=== PATIENT | female | born 1935 | race Caucasian/White ===

== ENCOUNTER 2018-12-13 16:43 | Emergency (ER) | payer MEDICARE ==
--- OUTSIDE RECORDS SUMMARY | 2018-12-13 16:49 | XMS REPORT | Continuity of Care Document ---
:1935 Author Organization [facility] Care Team Providers Name Role Phone ROULA ARTEAGA Admitting Physician ROULA ARTEAGA Attending Physician Hospital Admission Diagnosis Code Admission Diagnosis Date [id number] Acute bronchitis Social History Element Code Description Smoking Start Date End Date Description Status Code System Smoking Status 221252819 Unknown if ever SNOMED-CT smoked Problems Code Code System Problem Name Start Date End Date Status 91911034 SNOMED-CT Hypercholesterolemia 11/2014 Active 421897282 SNOMED-CT Asthma 11/2014 Active 17131864 SNOMED-CT Hypertensive disorder 11/2014 Active Medications RxNorm Medication Dose Route Instructions Indications Start End Status Date Date 1191 Aspirin 81 oral orally every Active milligram day 405198 atorvastatin 20 20 oral orally every Active MG Oral Tablet milligram day 1897 Calcium 600 oral orally every Active Carbonate milligram day (administer after food or a meal) 2418 Cholecalciferol 2000 unit oral orally every Active day 32964 fluticasone 2 Inhalation inhaled 2 Active inhalatio times per day n 191954 rizatriptan 5 MG 10 oral orally once Active Oral Tablet milligram (may repeat once if at least 2 hours after first dose if first dose was effective but headache returns) 92726 salmeterol 2 Inhalation inhaled 2 Active inhalatio times per day n 643159 topiramate 50 MG 50 oral orally every Active Oral Tablet milligram day 760839 valsartan 40 MG 40 oral orally every Active Oral Tablet milligram day 00534 Verapamil 180 oral orally 2 Active milligram times per day 984415 Calcium 1 tablet oral orally every No Carbonate 1250 day Longer MG / Active Cholecalciferol 400 UNT Oral Tablet Allergies Code Code Allergy Type Reaction Severity Start End Status System Substance Date Date 99310118 RXNorm Beta-Anum Drug shortness of Unknown 03/10/20 Active s allergy breath 15 (Beta-Adrene rgic Blocking Agts) Results Laboratory Results Order: POC Influenza A/B, RNA LOINC Test Result Flag Range Unit Date 57061-9 NEGATIVE N NEGATIVE 11/27/2018 Influenza virus 15:43 A RNA:ACnc:Pt:XXX :Ord:Probe.amp. tar Note: Performed on the Alere i analyzer by rapid molecular methodology. 62621-9 Influenza virus B NEGATIVE N NEGATIVE 11/27/2018 RNA:ACnc:Pt:XXX:Ord:Probe.amp.tar 15:43 Note: Performed on the Alere i analyzer by rapid molecular methodology. Vital Signs No data in the system Plan of Care No data in the system Procedures No data in the system Encounters Date Code Diagnosis Status (ICD10) - J209 ACUTE BRONCHITIS UNSPECIFIED Active Immunizations No data in the system Functional Status No data in the system Hospital Discharge Instructions No data in the system
--- OUTSIDE RECORDS SUMMARY | 2018-12-13 16:49 | XMS REPORT | Continuity of Care Document ---
:1935 External Reference #:[id number] Author Name Sarah Cabral PA-C Address [address] [address] Care Team Providers Name Role Phone Paulo Goode M.D. Care Team Information [employer] Unavailable Payers Type Date Identification Numbers Payment Provider Subscriber Effective: Policy Number: [id number] [employer]-[place] [employer]y Simmons 2018 [employer]VS PayID: [id number] [address] [place] [address] Advance Directives Description No Information Available Problems Description No Information Family History Description No Information Available Social History Type Date Description Comments Sex Unknown Occupation Retired Tobacco Use Start: Unknown End: Former Cigarette Smoker quit age 31. started Unknown 1/2 Pack Daily smoking age 19 Tobacco Use Start: Unknown Never Smoked Cigars Tobacco Use Start: Unknown Never Smoked A Pipe Smokeless Tobacco Never Used Smokeless Tobacco ETOH Use Denies alcohol use Tobacco Use Start: Unknown End: Patient is a former Unknown smoker Smoking Status Reviewed: 12/11/18 Patient is a former smoker Allergies, Adverse Reactions, Alerts Date Description Reaction Status Severity Comments 12/11/2018 Beta Anum Active Medications Medication Date Status Form Strength Qnty SIG Indications Ordering Provider Losartan Active Tablets 25mg Unknown Potassium 000 Atorvastatin Active Tablets 20mg Take 1 Unknown Calcium 000 Tablet By Mouth Once Daily Advair Diskus Active Aerosol 250-50mcg/ Unknown 000 Dose Topiramate Active Tablets 50mg Unknown 000 Verapamil HCL Active Caps ER 180mg Unknown ER 000 24HR Rizatriptan Active Tablets 10mg Unknown Benzoate 000 Vitamin D Active Tablets 3000Unit every Unknown 000 day Aspirin Active Chewtabs 81mg 1 by Unknown 000 mouth every day Super B-Complex Active Tablets Unknown 000 Ocuvite Eye + Active Tablets Unknown Multi 000 Immunizations Description No Information Available Vital Signs Date Vital Result Comment 12/11/2018 3:18pm Weight 160.00 lb Weight 72.576 kg Height 64 inches 5'4" Height in cm's 162.6 cm BMI (Body Mass Index) 27.5 kg/m2 Results Description No Information Available Procedures Date Code Description Status 12/11/2018 98011 Contol Nasal Hemorrhage, Anterior, Simple Completed Encounters Description No Information Available Plan of Treatment No Information Available
--- OUTSIDE RECORDS SUMMARY | 2018-12-13 16:49 | XMS REPORT ---
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 Vitamin D Deficiency 05/20/2009 Ubaldo Law MD Active Diverticulosis of Small Intestine 12/13/2007 Ubaldo Law MD Active Note: DUADENAL DIVERTICULITIS Migraine Headache 04/12/2001 Ubaldo Law MD Active Note: classic with aura Chronic Asthmatic Bronchitis 01/15/2001 Ubaldo Law MD Active Note: mild to moderate Chronic Obstructive Pulmonary Disease 01/15/2001 Ubaldo Law MD Active Note: mild to moderate Clotting 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 Ubaldo Law MD Instructions No Instructions Recorded Medications Current Medications (continue as prescribed) Amoxicillin-Pot Clavulanate 11/27/2018 Diagnosis: Acute bronchitis, unspecified 500-125MG Oral Tablet one by mouth twice a day with food x 10 days Shingrix 50MCG/0.5ML Intramuscular 09/19/2018 Diagnosis: Encounter for immunization Suspension Reconstituted 0.5ml IM first dose - 2nd dose booster 2-6 mths following first dose Losartan Potassium 25MG Oral Tablet 08/30/2018 Diagnosis: 1/2 tab by mouth once daily Ocuvite-Lutein Oral Capsule 08/14/2018 Diagnosis: Verapamil HCl ER 180MG Oral 07/03/2018 Diagnosis: Essential (primary) hypertension Capsule Extended Release 24 Hour one by mouth twice a day Atorvastatin Calcium 20MG Oral Tablet 05/03/2018 Diagnosis: Mixed hyperlipidemia one by mouth daily Topiramate 50 MG Tablet 03/31/2017 Diagnosis: B Complex Tablet 01/20/2016 Diagnosis: Vitamin D3 3000 UNIT Tablet 08/07/2015 Diagnosis: Vitamin D Deficiency Nos Advair Diskus 250-50MCG/DOSE IN AEPB 04/24/2014 Diagnosis: ONE PUFF DAILY Aspirin 81 MG TABS 04/24/2014 Diagnosis: Maxalt 10MG OR TABS 10/09/2013 Diagnosis: PRN FOR MIGRAINES Past Medications on file Losartan Potassium 25MG Oral 06/15/2018 - 08/30/2018 Diagnosis: Tablet 1/2 tab by mouth once daily Valsartan 40 MG Tablet 10/31/2017 - 06/15/2018 Diagnosis: Essential (primary ) hypertension one by mouth daily Verapamil HCl ER 180 MG 06/20/2017 - 07/03/2018 Diagnosis: Essential ( primary) Capsule Extended Release hypertension 24 Hour one by mouth twice a day Escitalopram Oxalate 10 MG 03/31/2017 - 08/14/2018 Diagnosis: Tablet LevoFLOXacin 500 MG Tablet 10/26/2016 - 11/25/2016 Diagnosis: Acute bronchitis, unspecified one by mouth daily Valsartan 40 MG Tablet 07/11/2016 - 07/25/2017 Diagnosis: Essential (primary ) hypertension one by mouth daily Sulfamethoxazole-Trimethoprim 800-160 05/27/2016 - Diagnosis: Acute cystitis MG Tablet 07/28/2016 without hematuria one by mouth twice a day Ciprofloxacin HCl 250 MG 02/15/2016 - 04/01/2016 Diagnosis: Frequency of micturition Tablet one by mouth twice a day Topiramate 25 MG Tablet 01/20/2016 - 03/31/2017 Diagnosis: Levaquin 500 MG Tablet 11/26/2015 - 01/20/2016 Diagnosis: Acute bronchitis, unspecified one by mouth daily with 6-8 oz. of water Valsartan 40 MG Tablet 08/04/2015 - 07/11/2016 Diagnosis: Essential (primary ) hypertension one by mouth daily Atorvastatin Calcium 20 MG 07/10/2015 - 07/11/2016 Diagnosis: Mixed Hyperlipidemia Tablet one by mouth daily Verapamil HCl ER 180 MG Capsule, 06/08/2015 - 05/13/2016 Diagnosis: Hypertension Nos extended-release 24 hour one by mouth twice a day Diovan 40MG OR TABS 05/04/2015 - 08/04/2015 Diagnosis: Hypertension Nos Diovan 40MG OR TABS 03/13/2015 - 05/04/2015 Diagnosis: Atorvastatin Calcium 20MG OR 01/12/2015 - 07/10/2015 Diagnosis: Mixed Hyperlipidemia TABS Zithromax Z-King 250MG OR TABS 11/24/2014 - 02/04/2015 Diagnosis: 500MG po x 1 today, then 250MG QD x 4 days. Diovan 80MG OR TABS 09/23/2014 - 03/13/2015 Diagnosis: Benign Hypertension Levaquin 500MG OR TABS 08/25/2014 - 01/20/2016 Diagnosis: Atorvastatin Calcium 20MG OR 07/18/2014 - 01/12/2015 Diagnosis: Mixed Hyperlipidemia TABS Verapamil HCl ER 180 MG CP24 06/06/2014 - 06/08/2015 Diagnosis: Calcium 600 MG TABS 04/24/2014 - 03/31/2017 Diagnosis: Multivitamins CAPS 04/24/2014 - 08/14/2018 Diagnosis: Atorvastatin Calcium 20MG OR 04/07/2014 - 07/18/2014 Diagnosis: Mixed Hyperlipidemia TABS Atorvastatin Calcium 20MG OR 04/07/2014 - 04/07/2014 Diagnosis: Mixed Hyperlipidemia TABS one tablet QOD Atorvastatin Calcium 40MG OR 12/18/2013 - 04/07/2014 Diagnosis: TABS one tablet QOD Valsartan-Hydrochlorothiazide 80-12.5MG 12/02/2013 - Diagnosis: OR TABS 09/23/2014 Verapamil HCl ER 180 MG CP24 10/09/2013 - 06/06/2014 Diagnosis: Advair HFA 115-21 MCG/ACT AERO 10/09/2013 - 11/24/2014 Diagnosis: 2 PUFFS EVERY 4-6 HOURS PRN Topiramate 25 MG CPSP 10/09/2013 - 01/20/2016 Diagnosis: 2 EVERYDAY AT HS Atorvastatin Calcium 80MG OR 08/30/2013 - 12/18/2013 Diagnosis: TABS Verapamil HCl ER 180 MG TBCR 06/05/2013 Diagnosis: Verapamil HCl ER 180 MG TBCR 04/16/2013 - 06/05/2013 Diagnosis: Valsartan-Hydrochlorothiazide 80-12.5MG 02/22/2013 - Diagnosis: OR TABS 12/02/2013 Medications Administered No Administered Medications Recorded Vital Signs Vital Name 11/27/2018 09/19/2018 08/14/2018 08/03/2018 02/23/2018 03:44P 01:25P 10:24A 10:15A 02:41P Blood Pressure 130/82 118/72 Sitting L BP Cuff Size Large Regular Pulse 112 86 78 Rate-Sitting (bpm) Pulse Rhythm Regular Regular Regular Respiration 24 24 24 Rate (breaths/min) Temp-Tympanic 101.7 98.9 97.6 98.3 (F) Height (in) 63.25 63.25 63.25 63.25 63.25 Weight (lb) 168 168 169 171 Body Mass Index 29.5 29.5 29.7 30.1 (kg/m2) Body Surface 1.80 1.80 1.81 1.81 Area (m2) Oxygen 91 Saturation (%) Pain Level 0 0 Vital Name 12/12/2017 02:10P Blood Pressure 128/78 Sitting L BP Cuff Size Large Pulse 80 Rate-Sitting (bpm) Pulse Rhythm Regular Respiration 20 Rate (breaths/min) Temp-Tympanic 99.4 (F) Height (in) 63.25 Weight (lb) 166 Body Mass Index 29.2 (kg/m2) Body Surface 1.79 Area (m2) Pain Level 0 Lab Results CBC w/ Differential [facility] Ordered by Ubaldo Law MD on 08/14/2018 Collected: 08/14/2018 Reported: Abs. Immature Gran. 0.04 x1000/ul (0.00-0.02) H (High) Basophils 1.3 % (0.0-2.0) None Abs. Basophils 0.12 x1000/ul (0.00-0.22) None Eosinophils 2.9 % (0.0-7.0) None Abs. Eosinophils 0.27 x1000/ul (0.00-0.76) None Hematocrit 45.5 % (37.0-47.0) None Hemoglobin 14.5 g/dl (12.0-16.0) None Immature Granulocytes 0.4 % (0.0-0.5) None Lymphocytes 21.7 % (19.0-48.0) None Abs. Lymphocyte 2.05 x1000/ul (1.20-3.70) None MCH 28.5 pg (27.0-31.0) None MCHC 31.9 g/dl (32.2-37.0) L (Low) MCV 89.6 fL (81.0-99.0) None Monocytes 10.0 % (3.4-9.0) H (High) Abs. Monocytes 0.94 x1000/ul (0.14-0.97) None MPV 9.9 fL (9.4-12.4) None Neutrophils 63.7 % (40.0-74.0) None Abs. Neutrophils 6.02 x1000/ul (1.92-8.31) None Platelet Count 290 x1000/ul (130-400) None RBC 5.08 x1Mil/ul (4.20-5.40) None RDW 13.9 % (11.5-14.5) None Nucleated RBCs 0.00 % (0.00-0.20) None Abs. Nucleated RBCs 0.00 x1000/ul (0.00-0.02) None WBC 9.44 x1000/ul (4.80-10.00) None Reviewed by Ubaldo Law MD on 08/15/2018; All test results are final unless otherwise noted. Chemistry Profile [facility] Ordered by Ubaldo Law MD on 08/14/2018 Collected: 08/14/2018 Reported: Anion Gap 11.5 None Albumin 3.9 g/dl (3.4-5.0) None Alkaline Phosphatase 82 mIU/ml (50-136) None ALT 24 IU/L (13-56) None Note: Sulfasalazine and sulfapyridine have the potential to fasely depressAlanine Aminotransferase results. Baseline values before medication administration are recommended. AST 20 IU/L (15-37) None Note: Sulfasalazine and sulfapyridine have the potential to fasely depressAspartate Aminotransferase results. Baseline values before medication administration are recommended. Blood Urea Nitrogen 18 mg/dl (7-18) None Calcium 9.4 mg/dl (8.5-10.1) None Chloride 108.0 mEq/L (98.0-107.0) H (High) Carbon Dioxide 27.7 mMol/L (21.0-32.0) None Creatinine 0.77 mg/dl (0.51-0.95) None Note: N-Acetylcysteine (NAC) and Metamizole have the potential to falselydepress Creatinine results. Baseline values before medication adminstration are recommended. Glomerular Filtration Rate 72.00 mL/min/1.73m2 None Note: GFR Reference Ranges:Normal Function or Mild Renal Disease,if clinically at risk:>or=60Moderately decreased:30 - 59Severely decreased:15 - 29Renal Failure:<15 Please note that the MDRD equation requires an additional adjustment forAfrican-Americans (multiply the GFR result by 1.210).Glomarular Filtration Rate (GFR) is estimated based on the MDRDequation, which assumes a steady state for creatinine (Jessica Int Med 139/2 137-149, 2003), as recommended by the NationalKidney Disease Education Program in conjunctionwith the National Institutes of Health and [facility]. The [place] method used in calculating this result istraceable to IDMS standards. Glucose 84 mg/dl (70-110) None Note: Sulfasalazine has the potential to falsely depress Glucose results.Sulfapyridine has the potential to faslely elevate Glucose results.Baseline values before medication administration are recommended. Potassium 4.2 mEq/L (3.5-5.1) None Sodium 143 mEq/L (136-145) None Total Bilirubin 1.00 mg/dl (0.20-1.00) None Total Protein 7.1 g/dl (6.4-8.2) None Reviewed by Ubaldo Law MD on 08/15/2018; All test results are final unless otherwise noted. Vitamin D, 25-OH [facility] Ordered by Ubaldo Law MD on 08/14/2018 Collected: 08/14/2018 Reported: Vitamin D, 25-OH 47.7 ng/ml (30.0-100.0) None Reviewed by Ubaldo Law MD on 08/15/2018; All test results are final unless otherwise noted. Cholesterol Panel [facility] Ordered by Ubaldo Law MD on 08/14/2018 Collected: 08/14/2018 Reported: Cholesterol/ HDL Ratio 2.5 (0.0-5.0) None Cholesterol 174 mg/dl (0-200) None HDL Cholesterol 70 mg/dl (30-85) None Note: N-Acetylcysteine (NAC) and Metamizole have the potential to falselydepress HDL Cholesterol results. Baseline values before medication adminstration are recommended. LDL Cholesterol 84.4 mg/dl (62.0-185.0) None Triglycerides 98 mg/dl (30-200) None Note: N-Acetylcysteine (NAC) and Metamizole have the potential to falselydepress Triglyceride results. Baseline values before medication adminstration are recommended. Reviewed by Ubaldo Law MD on 08/15/2018; All test results are final unless otherwise noted. Reported Physicians [facility] Ordered by Ubaldo Law MD on 08/14/2018 Collected: 08/14/2018 Reported: Reported Physicians See Note None Note: Reported Physicians:Ordering: UBALDO LAWAttending: UBALDO LAW Reviewed by Ubaldo Law MD on 08/15/2018; All test results are final unless otherwise noted. *Urine Dip [facility] Ordered by Ubaldo Law MD on 02/23/2018 Collected: 02/23/2018 Reported: 04/2018 Bilirubin NEG (Normal - negative) NI (Not Interpreted) Blood NEG (Normal - negative) NI (Not Interpreted) Glucose NEG (Normal - negative) NI (Not Interpreted) Ketones NEG (Normal - negative) NI (Not Interpreted) Leukocytes NEG (Normal - negative) NI (Not Interpreted) Nitrite NEG (Normal - negative) NI (Not Interpreted) PH 6.5 (Normal - 5.0 to NI (Not Interpreted) 7.0) Protein NEG (Normal - negative) NI (Not Interpreted) Specific Thayer 1.025 (Normal - 1.015 to NI (Not Interpreted) 1.025) Urobilinogen 1.0 (Normal - 0.2-1.0 NI (Not Interpreted) E.U./dL) Note: DLP Reviewed by Ubaldo Law MD on 02/23/2018; All test results are final unless otherwise noted. 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 No physical disability 01/20/2016 Normal activities of daily living 01/20/2016 Not using drugs 01/20/2016 Caffeine use 08/04/2015 Daily coffee consumption 2 cups/day 08/04/2015 Good exercise habits 08/04/2015 Not a current smoker 08/04/2015 Not using alcohol 08/04/2015 Currently 05/27/2015 Former smoker 05/27/2015 Social history unchanged 08/25/2014 Smoking status : Former smoker 06/11/2014 Procedures and Surgical/Medical History Procedures CPT-4 Diagnosis Performing Service Service Date Provider Location Syst Bp Lt 130 Mm 3074F Essential (primary) Ubaldo Law MD *[facility] 08/14/2018 Hg hypertension, Of Web Office Presbycusis, bilateral, Migraine with aura, not intractable, w/o status migrainosus Diast Bp < 80 Mm 3078F Essential (primary) Ubaldo Law MD *[facility] 08/14/2018 Hg hypertension, Of Web Office Presbycusis, bilateral, Migraine with aura, not intractable, w/o status migrainosus Syst Bp Ge 130 - 3075F Essential (primary) Ubaldo Law MD *[facility] 02/23/2018 139mm Hg hypertension Of Web Office Diast Bp < 80 Mm 3078F Essential (primary) Ubaldo Law MD *[facility] 02/23/2018 Hg hypertension Of Web Office Surgical History Last Updated History of cholecystectomy 10/09/2013 History of hysterectomy S/P TAHBSO DUE TO TGQOQNCP01/94-HOMOCYSTINE 2012 ELEVATION History of orthopedic surgery S/P LEFT TOTAL KNEE ARTHOPLASTY-01/07/022012 S/P RIGHT TOTAL KNEE ARTHOSCOPY-02/12/02 Medical History Last Updated History of asthma 10/26/2016 Currently wearing eyeglasses - for reading 09/27/2016 Health care proxy on file 09/27/2016 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 09/27/2016 Hearing loss 09/27/2016 Living will on file 09/27/2016 No problem remembering words 09/27/2016 No slurred speech 09/27/2016 No speech difficulties 09/27/2016 Patient has Advance Directives 09/27/2016 Smoking status : Former smoker 09/27/2016 History of essential hypertension 01/20/2016 No history of coronary artery disease 01/20/2016 No history of type 2 diabetes mellitus 01/20/2016 History of chronic obstructive pulmonary disease 11/26/2015 History of hypertension 11/26/2015 Compliant with medications 08/04/2015 History of hyperlipidemia 08/04/2015 No history of atherosclerosis of extremities 08/04/2015 No history of congestive heart failure 08/04/2015 No history of diabetes mellitus 08/04/2015 No history of prior myocardial infarction 08/04/2015 No history of renal failure 08/04/2015 No history of thyroid disorder 08/04/2015 No recent change in medical history 08/25/2014 Hysterectomy 10/09/2013 Family History Description Last Updated Family history unchanged 08/14/2018 No rales/crackles were heard 02/15/2016 Father at age 63 11/26/2015 Maternal history of coronary artery disease 11/26/2015 Mother at age 82 11/26/2015 Paternal history of acute myocardial infarction 11/26/2015 Review of Systems No Review of Systems Recorded Functional and Cognitive Status Description Oriented to time, place, and person Physical Exam No Physical Exam Recorded Immunizations Vaccine Dose # Date Site Reaction(s) Status Source Influenza, No 1 Right Arm Active Patient Prsv age 3+ 3 (Reported) [facility] Influenza, No 2 Active Patient Prsv age 3+ 4 (Reported) [facility] Influenza, No [address] [facility] Prsv age 3+ 5 ([facility]ister [facility] Quad ed) Note: VIS 06/26/15 Influenza, No Prsv age 4 08/30/2016 Active (Reported) Patient 3+ [facility] Note: given through Hospice Influenza, No 5 09/27/[address] [facility] Prsv age 3+ (Administered) [facility] Influenza, No 6 09/19/[address] [facility] Prsv age 3+ (Administered) [facility] PCV 13 (Prevnar) 1 03/17/2015 Left Arm Active [facility] (Administered) [facility] Note: 01/16/2013 VIS Pneumococcal Poly 1 06/11/2014 Left Arm Active [facility] (Administered) [facility] Note: Pneumococcal Polysaccharide (PPSV23) VIS date 08/25/09 Allergies Substance Type Reaction Effective Status Beta Adrenergic Blockers Allergy Asthma/Shortness of Breath 07/11/2013 Active Encounters Encounter Provider Location Date Diagnosis *Problem Ubaldo Law *[facility] 11/27/2018 Chronic Asthmatic Management Web Office Bronchitis, Chronic Obstructive Pulmonary Disease *INJ Flu Ubaldo Law *[facility] 09/19/2018 Web Office [Patient Ubaldo Law *[facility] 08/30/2018 Encounter] Web Office *Problem Ubaldo Law *[facility] 08/14/2018 Benign Hypertension, Management Web Office Chronic Obstructive Pulmonary Disease, Chronic Asthmatic Bronchitis, Clotting Factor Deficiency Factor V, Diverticulosis of Small Intestine, Gerd, Hyperlipoproteinemia Mixed, Migraine Headache, Presbycusis, Vitamin D Deficiency *Problem Ubaldo Law *[facility] 08/03/2018 Management Web Office [Patient Ubaldo Law *[facility] 07/03/2018 Encounter] Web Office RX Refill Ubaldo Law *[facility] 06/15/2018 Web Office *Problem Ubaldo Law *[facility] 02/23/2018 Benign Hypertension, Management Web Office Chronic Asthmatic Bronchitis, Chronic Obstructive Pulmonary Disease, Clotting Factor Deficiency Factor V, Gerd, Hyperlipoproteinemia Mixed, Presbycusis, Vitamin D Deficiency *Problem Ubaldo Law *[facility] 12/12/2017 Management Web Office Insurance Plan Name Member ID Group # Subscriber Relationship Effective Dates 1 - [place] [id number] MARGARITA KNOX Self 11/20/2015 - Healthcare Unknown Medicare Advance Directives Directive Pat Aware Third Constitution Party Effective Date Reviewed Status Living Will Yes 07/13/2016 Supported By Healthcare Will
--- OUTSIDE RECORDS SUMMARY | 2018-12-13 16:49 | XMS REPORT | Continuity of Care Document ---
:1935 Author Organization [facility] Care Team Providers Name Role Phone ROULA ARTEAGA Admitting Physician ROULA ARTEAGA Attending Physician Hospital Admission Diagnosis Code Admission Diagnosis Date [id number] Acute bronchitis Social History Element Code Description Smoking Start Date End Date Description Status Code System Smoking Status 628014062 Unknown if ever SNOMED-CT smoked Problems Code Code System Problem Name Start Date End Date Status 27279460 SNOMED-CT Hypercholesterolemia 11/2014 Active 213696599 SNOMED-CT Asthma 11/2014 Active 60469437 SNOMED-CT Hypertensive disorder 11/2014 Active Medications RxNorm Medication Dose Route Instructions Indications Start End Status Date Date 1191 Aspirin 81 oral orally every Active milligram day 432170 atorvastatin 20 20 oral orally every Active MG Oral Tablet milligram day 1897 Calcium 600 oral orally every Active Carbonate milligram day (administer after food or a meal) 2418 Cholecalciferol 2000 unit oral orally every Active day 87991 fluticasone 2 Inhalation inhaled 2 Active inhalatio times per day n 118272 rizatriptan 5 MG 10 oral orally once Active Oral Tablet milligram (may repeat once if at least 2 hours after first dose if first dose was effective but headache returns) 93448 salmeterol 2 Inhalation inhaled 2 Active inhalatio times per day n 922711 topiramate 50 MG 50 oral orally every Active Oral Tablet milligram day 461806 valsartan 40 MG 40 oral orally every Active Oral Tablet milligram day 32864 Verapamil 180 oral orally 2 Active milligram times per day 628107 Calcium 1 tablet oral orally every No [...] LOINC Test Result Flag Range Unit Date 22470-9 NEGATIVE N NEGATIVE 11/27/2018 Influenza virus 15:43 A RNA:ACnc:Pt:XXX :Ord:Probe.amp. tar Note: Performed on the Alere i analyzer by rapid molecular methodology. 34131-9 Influenza virus B NEGATIVE N NEGATIVE 11/27/2018 [...]
[2018-12-13 17:08] VITALS: BP 126/73
--- NOTE | 2018-12-13 18:12 | UC ---
Respiratory Complaint HPI - HPI Summary HPI Summary: 83-year-old female presents with daughter reporting onset of fever, chills, general malaise, fatigue, shortness of breath, and a productive cough for yellow -green sputum last night. Associated with exertional dyspnea and mild nausea. She states that she was seen by her primary care provider 17 days ago and was diagnosed with an upper respiratory infection and treated with a 10 day course of Augmentin which she completed. She states that her symptoms did improve while on the Augmentin however the cough remained fairly consistent. Denies ear pain, nasal congestion, sore throat, chest pain, palpitations, abdominal pain, vomiting, or diarrhea. - History of Current Complaint Chief Complaint: UCGeneralIllness Stated Complaint: FEVER, COUGH, AND NAUSEA Time Seen by Provider: 12/13/18 17:47 Hx Obtained From: Patient Pain Intensity: 0 - Allergies/Home Medications Allergies/Adverse Reactions: Allergies Allergy/AdvReac Type Severity Reaction Status Date / Time BETA BLOCKERS Allergy Severe Difficulty Uncoded 12/13/18 17:09 Breathing Home Medications: Home Medications Lutein/Zeaxanthin [Ocuvite Lutein 25 25-5 mg] 1 cap PO DAILY 12/13/18 [History Confirmed 12/13/18] PMH/Surg Hx/FS Hx/Imm Hx Endocrine History: Dyslipidemia Cardiovascular History: Hypertension Respiratory History: COPD Neurological History: Migraine - Surgical History Surgical History: Yes Surgery Procedure, Year, and Place: TWO KNEE REPLACEMENTS, HYSTERECTOMY, TONSILLECTOMY, ENDOSCOPY (ESOPHAGUS NICKED DURING THIS AND HAD SURGERY TO REPAIR THAT) - Family History Known Family History: Positive: Non-Contributory - Social History Occupation: Retired Lives: Alone Alcohol Use: None Substance Use Type: None Smoking Status (MU): Former Smoker - Immunization History Most Recent Tetanus Shot: UTD Review of Systems All Other Systems Reviewed And Are Negative: Yes Constitutional: Positive: Fever, Chills, Fatigue, Other - General malasie, fatigue Skin: Negative: Rash Eyes: Negative: Drainage, Eye Redness ENT: Negative: Sore Throat, Ear Ache, Nasal Discharge, Sinus Congestion, Sinus Pain/Tenderness Respiratory: Positive: Shortness Of Breath, Cough, Other - Exertional dyspnea Cardiovascular: Negative: Palpitations, Chest Pain Gastrointestinal: Positive: Nausea. Negative: Abdominal Pain, Vomiting, Diarrhea Genitourinary: Positive: Negative Musculoskeletal: Positive: Negative Neurological: Positive: Negative Is Patient Immunocompromised?: No Physical Exam - Summary Physical Exam Summary: GENERAL APPEARANCE: Well developed, well nourished, alert and cooperative older adult female who appears to be in no acute distress. EYES: Conjunctiva clear. No drainage. Vision is grossly intact. EARS: right external auditory canal clear and TM opaque with good cone of light. Left external auditory canal with large amount of cerumen. TM not visualized. Hearing grossly intact. NOSE: No nasal congestion or discharge. THROAT: Pharynx normal. Tonsils surgically absent. NECK: Neck supple, non-tender without lymphadenopathy. CARDIAC: Normal S1 and S2. No S3, S4 or murmurs. Rhythm is regular. Tachycardic. There is no peripheral edema, cyanosis or pallor. Extremities are warm and well perfused. Capillary refill is less than 2 seconds. Peripheral pulses intact. LUNGS: Course bilateral rhonchi. Patient became mildly tachypnic moving from chair to exam table. ABDOMEN: Positive bowel sounds. Soft, nondistended, nontender. No guarding or rebound. No masses or hepatosplenomegally. MUSKULOSKELETAL: ROM intact to all extremities. No joint erythema or tenderness. Normal muscular development. Normal gait. SKIN: Skin normal color, texture and turgor with no lesions or eruptions. Triage Information Reviewed: Yes Vital Signs: Initial Vital Signs Temp 99.2 F 12/13/18 17:01 Pulse 100 12/13/18 17:01 Resp 21 12/13/18 17:01 BP 126/73 12/13/18 17:01 Pulse Ox 94 12/13/18 17:01 Vital Signs Reviewed: Yes UC Diagnostic Evaluation - Laboratory O2 Sat by Pulse Oximetry: 94 Diagnostic Studies Comment: Rapid flu negative. - Radiology Radiology Interpretation Completed By: ED Physician - Left upper lobe infiltrate Respiratory Course/Dx - Course Course Of Treatment: 83-year-old female presents with complaints of fever, chills, general malaise, fatigue, shortness of breath, and a productive cough for yellow-green sputum. Associated with exertional dyspnea and mild nausea. She states that she was seen by her primary care provider 17 days ago and was diagnosed with an upper respiratory infection and treated with a 10 day course of Augmentin which she completed. She states that her symptoms did improve while on the Augmentin however the cough remained fairly consistent. Denies ear pain, nasal congestion, sore throat, chest pain, palpitations, abdominal pain, vomiting, or diarrhea. Patient has a mildly elevated temperature of 99.2 F, is mildly tachycardic at a rate of 100 at rest, and pulse ox at rest was 94% . Her exam was remarkable for a very wet, loose cough and coarse bilateral breath sounds. An ambulatory pulse ox was obtained. Patient became tachypnic with a heart rate of 116-118 and she dropped her pulse oximetry as low as 86%. Rapid flu was negative. Chest x-ray shows a left upper lobe consolidation consistent with pneumonia. With the exertional dyspnea, desaturations, and the fact that she was recently treated with Augmentin and I am recommending that she be evaluated in the emergency room at this time for possible admission. Discussed case with Dr. Anahy García and patient is to be evaluated upon arrival to the ER. Patient and daughter are agreeable to this and have elected to transfer via private vehicle. - Differential Dx/Diagnosis Differential Diagnosis/HQI/PQRI: Bronchitis, Influenza, Lower Resp Infection, Sinusitis Provider Diagnosis: Left upper lobe pneumonia - Physician Notification/Consults Discussed Patient Care With: Anahy García Time Discussed With Above Provider: 19:00 Instructed by Provider To: MD Will See In ED Discharge - Sign-Out/Discharge Documenting (check all that apply): Patient Departure All imaging exams completed and their final reports reviewed: No - Discharge Plan Condition: Stable Disposition: HOME-RECOMMEND TO ED Patient Education Materials: Pneumonia (ED) Referrals: Ani YO,Ubaldo Burdick [Primary Care Provider] - Additional Instructions: The flu test performed in the clinic today was negative. Your chest x-ray showed a pneumonia in the left lung. With you having recently completed a course of antibiotics and your oxygen level dropping with only a minimal amount of activity I am recommending that you be evaluated in the emergency room at this time. Please go directly to the emergency room from the clinic. - Billing Disposition and Condition Condition: STABLE Disposition: Home-Recommend to ED
[2018-12-13 18:34] LABS: Influenza A Molecular NEGATIVE (Negative); Influenza B Molecular NEGATIVE (Negative)
--- NOTE | 2018-12-14 08:58 | UC ---
- Progress Note Progress Note: wet read correct went to ER Course/Dx - Diagnoses Provider Diagnoses: Left upper lobe pneumonia - Provider Notifications Time Discussed With Above Provider: 19:00 Instructed by Provider To: MD Will See In ED Discharge - Sign-Out/Discharge Documenting (check all that apply): Post-Discharge Follow Up All imaging exams completed and their final reports reviewed: Yes - Discharge Plan Condition: Stable Disposition: HOME-RECOMMEND TO ED Patient Education Materials: Pneumonia (ED) Referrals: Ani YO,Ubaldo Burdick [Primary Care Provider] - Additional Instructions: The flu test performed in the clinic today was negative. Your chest x-ray showed a pneumonia in the left lung. With you having recently completed a course of antibiotics and your oxygen level dropping with only a minimal amount of activity I am recommending that you be evaluated in the emergency room at this time. Please go directly to the emergency room from the clinic. - Billing Disposition and Condition Condition: STABLE Disposition: Home-Recommend to ED
== END 2018-12-13 19:11 | disposition home health service (06) ==
LOC: UCEAST 16:43
DX: J18.9 Pneumonia, unspecified organism (principal); Z96.659 Presence of unspecified artificial knee joint; Z88.8 Allergy status to other drugs, medicaments and biological substances; Z87.891 Personal history of nicotine dependence
CPT/HCPCS: 71046; 99212; G0463

== ENCOUNTER 2018-12-13 19:27 | Inpatient (IN) | payer MEDICARE ==
[2018-12-13] MEDS ORDERED: cefTRIAXone(*) 1 GM in NS 0.9% 50 ML* 50 ML IVPB ONE (19:44)
[2018-12-13] MEDS ORDERED: Azithromycin IV(*) 500 MG in NS 0.9% 250 ML* 250 ML IVPB ONE (19:44)
[2018-12-13] MEDS ORDERED: NS 0.9% 1000 ML*IV.FLUID IV ONE (19:44)
[2018-12-13 20:20] LABS: Hematocrit 41 % (35-47); Hemoglobin 13.6 g/dl (12.0-16.0); Mean Corpuscular HGB Conc 33 g/dl (31-36); Mean Corpuscular Hemoglobin 28 pg (27-31); Mean Corpuscular Volume 85 fL (80-97); Mean Platelet Volume 7.2 fL (7.4-10.4); Platelet Count 392 10^3/ul (150-450); Red Blood Count 4.85 10^6/ul (4.00-5.40); Red Cell Distribution Width 13 % (10.5-15); White Blood Count 28.2 10^3/ul (3.5-10.8)
[2018-12-13 20:28] LABS: Activated Partial Thrombo Time 35.6 seconds (26.0-36.3); INR 1.33 (0.77-1.02)
[2018-12-13 21:00] LABS: Troponin I 0.01 ng/mL (<0.04)
[2018-12-13 21:05] LABS: ABS Basophils 0 10^3/ul (0-0.2); ABS Eosinophils 0 10^3/ul (0-0.6); ABS Lymphocytes 1.5 10^3/ul (1.0-4.8); ABS Monocytes 2.4 10^3/ul (0-0.8); ABS Neutrophils 24.2 10^3/ul (1.5-7.7); ABS Nucleated RBC 0 10^3/ul; Eosinophil % 0.1 %; Lymphocyte % 5.4 %; Nucleated Red Blood Cells % 0
[2018-12-13 21:08] LABS: Albumin 3.7 g/dL (3.2-5.2); Albumin/Globulin Ratio 0.9 (1-3); BUN/Creatinine Ratio 15.4 (8-20); C Reactive Protein 194.3 mg/L (<8.01); Calcium 9.3 mg/dL (8.6-10.3); EGFR African American 85.6 (>60); EGFR Non-African American 70.7 (>60); Potassium 3.7 mmol/L (3.5-5.0); Total Bilirubin 1.3 mg/dL (0.2-1.0); Total Protein 7.7 g/dL (6.4-8.9)
[2018-12-13 21:18] LABS: Erythrocyte Sed Rate 88 mm/Hr (0-40)
--- NOTE | 2018-12-13 21:54 | ED ---
HPI Febrile Illness - HPI Summary HPI Summary: Patient is a 83 y/o F presenting to ED with complaints of . She finished augmentin on 12/07/18 - History of Current Complaint Chief Complaint: EDGeneral Time Seen by Provider: 12/13/18 19:44 Pain Intensity: 0 - Allergy/Home Medications Allergies/Adverse Reactions: Allergies Allergy/AdvReac Type Severity Reaction Status Date / Time BETA BLOCKERS Allergy Severe Difficulty Uncoded 12/13/18 17:09 Breathing PMH/Surg Hx/FS Hx/Imm Hx Cardiovascular History: Reports: Hx Hypertension Respiratory History: Reports: Hx Chronic Obstructive Pulmonary Disease (COPD) - mild - Surgical History Surgery Procedure, Year, and Place: TWO KNEE REPLACEMENTS, HYSTERECTOMY, TONSILLECTOMY, ENDOSCOPY (ESOPHAGUS NICKED DURING THIS AND HAD SURGERY TO REPAIR THAT) Infectious Disease History: No Infectious Disease History: Denies: Traveled Outside the [place] in Last 30 Days - Family History Known Family History: Positive: Non-Contributory - Social History Alcohol Use: None Substance Use Type: Reports: None Hx Tobacco Use: No Smoking Status (MU): Former Smoker Physical Exam Vital Signs On Initial Exam: Initial Vitals Temp Pulse Resp BP Pulse Ox 98.7 F 103 20 122/78 93 12/13/18 19:29 12/13/18 19:29 12/13/18 19:29 12/13/18 19:29 12/13/18 19:29 Diagnostics - Vital Signs Vital Signs Temp Pulse Resp BP Pulse Ox 12/13/18 19:29 98.7 F 103 20 122/78 93 - Laboratory Lab Results: Lab Results 12/13/18 12/13/18 12/13/18 Range/Units 19:15 19:15 19:15 WBC 28.2 H (3.5-10.8) 10^3/ul RBC 4.85 (4.00-5.40) 10^6/ul Hgb 13.6 (12.0-16.0) g/dl Hct 41 (35-47) % MCV 85 (80-97) fL MCH 28 (27-31) pg MCHC 33 (31-36) g/dl RDW 13 (10.5-15) % Plt Count 392 (150-450) 10^3/ul MPV 7.2 L (7.4-10.4) fL Neut % (Auto) 85.8 % Lymph % (Auto) 5.4 % [place] % (Auto) 8.5 % Eos % (Auto) 0.1 % Baso % (Auto) 0.2 % Absolute Neuts (auto) 24.2 H (1.5-7.7) 10^3/ul Absolute Lymphs (auto) 1.5 (1.0-4.8) 10^3/ul Absolute Monos (auto) 2.4 H (0-0.8) 10^3/ul Absolute Eos (auto) 0 (0-0.6) 10^3/ul Absolute Basos (auto) 0 (0-0.2) 10^3/ul Absolute Nucleated RBC 0 10^3/ul Nucleated RBC % 0 ESR 88 H (0-40) mm/Hr INR (Anticoag Therapy) 1.33 H (0.77-1.02) APTT 35.6 (26.0-36.3) seconds Sodium 131 L (135-145) mmol/L Potassium 3.7 (3.5-5.0) mmol/L Chloride 98 L (101-111) mmol/L Carbon Dioxide 25 (22-32) mmol/L Anion Gap 8 (2-11) mmol/L BUN 12 (6-24) mg/dL Creatinine 0.78 (0.51-0.95) mg/dL Est GFR ( Amer) 85.6 (>60) Est GFR (Non-Af Amer) 70.7 (>60) BUN/Creatinine Ratio 15.4 (8-20) Glucose 134 H (70-100) mg/dL Lactic Acid (0.5-2.0) mmol/L Calcium 9.3 (8.6-10.3) mg/dL Total Bilirubin 1.30 H (0.2-1.0) mg/dL AST 17 (13-39) U/L ALT 22 (7-52) U/L Alkaline Phosphatase 76 (34-104) U/L Total Creatine Kinase 71 (10-223) U/L Troponin I 0.01 (<0.04) ng/mL C-Reactive Protein 194.30 H (<8.01) mg/L B-Natriuretic Peptide (<=100) pg/mL Total Protein 7.7 (6.4-8.9) g/dL Albumin 3.7 (3.2-5.2) g/dL Globulin 4.0 (2-4) g/dL Albumin/Globulin Ratio 0.9 L (1-3) 12/13/18 12/13/18 Range/Units 19:15 19:15 WBC (3.5-10.8) 10^3/ul RBC (4.00-5.40) 10^6/ul Hgb (12.0-16.0) g/dl Hct (35-47) % MCV (80-97) fL MCH (27-31) pg MCHC (31-36) g/dl RDW (10.5-15) % Plt Count (150-450) 10^3/ul MPV (7.4-10.4) fL Neut % (Auto) % Lymph % (Auto) % [place] % (Auto) % Eos % (Auto) % Baso % (Auto) % Absolute Neuts (auto) (1.5-7.7) 10^3/ul Absolute Lymphs (auto) (1.0-4.8) 10^3/ul Absolute Monos (auto) (0-0.8) 10^3/ul Absolute Eos (auto) (0-0.6) 10^3/ul Absolute Basos (auto) (0-0.2) 10^3/ul Absolute Nucleated RBC 10^3/ul Nucleated RBC % ESR (0-40) mm/Hr INR (Anticoag Therapy) (0.77-1.02) APTT (26.0-36.3) seconds Sodium (135-145) mmol/L Potassium (3.5-5.0) mmol/L Chloride (101-111) mmol/L Carbon Dioxide (22-32) mmol/L Anion Gap (2-11) mmol/L BUN (6-24) mg/dL Creatinine (0.51-0.95) mg/dL Est GFR ( Amer) (>60) Est GFR (Non-Af Amer) (>60) BUN/Creatinine Ratio (8-20) Glucose (70-100) mg/dL Lactic Acid 1.2 (0.5-2.0) mmol/L Calcium (8.6-10.3) mg/dL Total Bilirubin (0.2-1.0) mg/dL AST (13-39) U/L ALT (7-52) U/L Alkaline Phosphatase (34-104) U/L Total Creatine Kinase (10-223) U/L Troponin I (<0.04) ng/mL C-Reactive Protein (<8.01) mg/L B-Natriuretic Peptide 87 (<=100) pg/mL Total Protein (6.4-8.9) g/dL Albumin (3.2-5.2) g/dL Globulin (2-4) g/dL Albumin/Globulin Ratio (1-3) Result Diagrams: 12/13/18 19:15 12/13/18 19:15 Lab Statement: Any lab studies that have been ordered have been reviewed, and results considered in the medical decision making process. Discharge - Discharge Plan Referrals: Ani YO,Ubaldo Burdick [Primary Care Provider] - - Attestation Statements Document Initiated by Johann: Yes
--- NOTE | 2018-12-13 22:05 | ED ---
Complex/Multi-Sys Presentation - HPI Summary HPI Summary: Patient is a 83 y/o F presenting to ED by private car with daughter after being evaluated and transferred from [facility] with complaints fever, chills, fatigue, SOB, productive cough for yellow-green sputum. Sx onset last night. Daughter states fever of around 101 F this morning. She went to to be evaluated, was subsequently sent to ED for further evaluation. Patient was walked at , her o2 sat dropped from 94 to 86% when ambulating. CXR taken there showed left upper lobe PNA. She notes that she had been diagnosed with a URI/bronchitis on 11/27/18, was placed on Augmentin for ten days, finished . Hx of bronchitis, COPD. PSHx of tonsillectomy, hysterectomy, double knee replacement, Yeny-Pitts tear repair. FMHx of grandmother with asthma. No PMHx of asthma, patient has Hx of COPD. Patient stopped smoking 50 years ago. No Hx of VA. On triage, pain is denied, nothing is noted to aggravate/alleviate Sx. Vitals are 100, o2 95, BP 124/78. Home medications and allergies are reviewed. Workup at urgent care included negative influenza A and B swab and CXR with left upper lobe pneumonia. With pt having symptoms persist/recur so soon after recent antibiotics, her age, her O2 desaturation with ambulation, and definite infiltrate on CXR, pt was advised to seek medical care in the ED. Pt is from [place], [place], visiting her daughter. Pt states her provider in [place] did not do a chest xray at the time she was diagnosed with bacterial bronchitis. on 11/27/18. VS in room: afebrile, BP 124/78, R 26, O2 sat 95% on 2L NC. 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 Related History: Recent Illness - on Augmentin for bronchitis 11/27- - Allergies/Home Medications Allergies/Adverse Reactions: Allergies Allergy/AdvReac Type Severity Reaction Status Date / Time BETA BLOCKERS Allergy Severe Difficulty Uncoded 12/13/18 17:09 Breathing PMH/Surg Hx/FS Hx/Imm Hx Previously Healthy: No Cardiovascular History: Reports: Hx Hypertension Respiratory History: Reports: Hx Chronic Obstructive Pulmonary Disease (COPD) - mild Sensory History: Denies: Hx Legally Blind, Hx Deafness Opthamlomology History: Denies: Hx Legally Blind EENT History: Denies: Hx Deafness - Surgical History Surgery Procedure, Year, and Place: TWO KNEE REPLACEMENTS, HYSTERECTOMY, TONSILLECTOMY, ENDOSCOPY (ESOPHAGUS NICKED DURING THIS AND HAD SURGERY TO REPAIR THAT) Infectious Disease History: No Infectious Disease History: Denies: Traveled Outside the [place] in Last 30 Days - Family History Known Family History: Positive: Respiratory Disease - ASTHMA, GRANDMOTHER - Social History Alcohol Use: None Substance Use Type: Reports: None Hx Tobacco Use: No Smoking Status (MU): Former Smoker - quit 50 year ago Review of Systems Positive: Fever, Chills, Fatigue Cardiovascular: Negative Positive: Shortness Of Breath, Cough Gastrointestinal: Negative Positive: no symptoms reported Positive: Myalgia Skin: Negative Neurological: Negative Psychological: Normal All Other Systems Reviewed And Are Negative: Yes Physical Exam - Summary Physical Exam Summary: Appearance: ill-appearing, no pain distress, well-nourished, afebrile Skin: Warm, color reflects adequate perfusion, dry Head: Normal Head/Face inspection, atraumatic Eyes: Conjunctiva clear, ENT: Normal inspection Neck: Supple, no nodes, no JVD Respiratory: Rhonchi and wheezes at left lung base, can speak in full sentences , SOB at rest, tachypneic Cardio: RRR, No murmur, pulses normal, brisk capillary refill Abdomen: Soft, nontender Bowel sounds: Present Musculoskeletal: Strength Intact/ROM intact, no calf tenderness, no edema. Psychological: Normal Neuro: Alert, muscle tone normal, no focal deficit Triage Information Reviewed: Yes Vital Signs On Initial Exam: Initial Vitals Temp Pulse Resp BP Pulse Ox 98.7 F 103 20 122/78 93 12/13/18 19:29 12/13/18 19:29 12/13/18 19:29 12/13/18 19:29 12/13/18 19:29 Vital Signs Reviewed: Yes Diagnostics - Vital Signs Vital Signs Temp Pulse Resp BP Pulse Ox 12/13/18 19:29 98.7 F 103 20 122/78 93 - Laboratory Lab Results: Lab Results 12/13/18 12/13/18 12/13/18 Range/Units 19:15 19:15 19:15 WBC 28.2 H (3.5-10.8) 10^3/ul RBC 4.85 (4.00-5.40) 10^6/ul Hgb 13.6 (12.0-16.0) g/dl Hct 41 (35-47) % MCV 85 (80-97) fL MCH 28 (27-31) pg MCHC 33 (31-36) g/dl RDW 13 (10.5-15) % Plt Count 392 (150-450) 10^3/ul MPV 7.2 L (7.4-10.4) fL Neut % (Auto) 85.8 % Lymph % (Auto) 5.4 % Hawkins % (Auto) 8.5 % Eos % (Auto) 0.1 % Baso % (Auto) 0.2 % Absolute Neuts (auto) 24.2 H (1.5-7.7) 10^3/ul Absolute Lymphs (auto) 1.5 (1.0-4.8) 10^3/ul Absolute Monos (auto) 2.4 H (0-0.8) 10^3/ul Absolute Eos (auto) 0 (0-0.6) 10^3/ul Absolute Basos (auto) 0 (0-0.2) 10^3/ul Absolute Nucleated RBC 0 10^3/ul Nucleated RBC % 0 ESR 88 H (0-40) mm/Hr INR (Anticoag Therapy) 1.33 H (0.77-1.02) APTT 35.6 (26.0-36.3) seconds Sodium 131 L (135-145) mmol/L Potassium 3.7 (3.5-5.0) mmol/L Chloride 98 L (101-111) mmol/L Carbon Dioxide 25 (22-32) mmol/L Anion Gap 8 (2-11) mmol/L BUN 12 (6-24) mg/dL Creatinine 0.78 (0.51-0.95) mg/dL Est GFR ( Amer) 85.6 (>60) Est GFR (Non-Af Amer) 70.7 (>60) BUN/Creatinine Ratio 15.4 (8-20) Glucose 134 H (70-100) mg/dL Lactic Acid (0.5-2.0) mmol/L Calcium 9.3 (8.6-10.3) mg/dL Total Bilirubin 1.30 H (0.2-1.0) mg/dL AST 17 (13-39) U/L ALT 22 (7-52) U/L Alkaline Phosphatase 76 (34-104) U/L Total Creatine Kinase 71 (10-223) U/L Troponin I 0.01 (<0.04) ng/mL C-Reactive Protein 194.30 H (<8.01) mg/L B-Natriuretic Peptide (<=100) pg/mL Total Protein 7.7 (6.4-8.9) g/dL Albumin 3.7 (3.2-5.2) g/dL Globulin 4.0 (2-4) g/dL Albumin/Globulin Ratio 0.9 L (1-3) 12/13/18 12/13/18 Range/Units 19:15 19:15 WBC (3.5-10.8) 10^3/ul RBC (4.00-5.40) 10^6/ul Hgb (12.0-16.0) g/dl Hct (35-47) % MCV (80-97) fL MCH (27-31) pg MCHC (31-36) g/dl RDW (10.5-15) % Plt Count (150-450) 10^3/ul MPV (7.4-10.4) fL Neut % (Auto) % Lymph % (Auto) % Hawkins % (Auto) % Eos % (Auto) % Baso % (Auto) % Absolute Neuts (auto) (1.5-7.7) 10^3/ul Absolute Lymphs (auto) (1.0-4.8) 10^3/ul Absolute Monos (auto) (0-0.8) 10^3/ul Absolute Eos (auto) (0-0.6) 10^3/ul Absolute Basos (auto) (0-0.2) 10^3/ul Absolute Nucleated RBC 10^3/ul Nucleated RBC % ESR (0-40) mm/Hr INR (Anticoag Therapy) (0.77-1.02) APTT (26.0-36.3) seconds Sodium (135-145) mmol/L Potassium (3.5-5.0) mmol/L Chloride (101-111) mmol/L Carbon Dioxide (22-32) mmol/L Anion Gap (2-11) mmol/L BUN (6-24) mg/dL Creatinine (0.51-0.95) mg/dL Est GFR ( Amer) (>60) Est GFR (Non-Af Amer) (>60) BUN/Creatinine Ratio (8-20) Glucose (70-100) mg/dL Lactic Acid 1.2 (0.5-2.0) mmol/L Calcium (8.6-10.3) mg/dL Total Bilirubin (0.2-1.0) mg/dL AST (13-39) U/L ALT (7-52) U/L Alkaline Phosphatase (34-104) U/L Total Creatine Kinase (10-223) U/L Troponin I (<0.04) ng/mL C-Reactive Protein (<8.01) mg/L B-Natriuretic Peptide 87 (<=100) pg/mL Total Protein (6.4-8.9) g/dL Albumin (3.2-5.2) g/dL Globulin (2-4) g/dL Albumin/Globulin Ratio (1-3) Result Diagrams: 12/14/18 06:16 12/14/18 06:16 Diagnostic Studies Comment: Note these lab results are results on the day documentation was signed, not at time of presentation in the ED. Initial WBC count 28.2. Lab Statement: Any lab studies that have been ordered have been reviewed, and results considered in the medical decision making process. - EKG 8 Cardiac Rate: NL - rate of 92 BPM EKG Rhythm: Sinus Rhythm ST Segment: Non-Specific Ectopy: None EKG Comparison: Other - no prior EKGs to compare with Summary of EKG Findings: EKG showed sinus rhythm with rate of 92 BPM, nml AVIVCT , nml axis, nml QTc. No ectopy, non-specific ST. No acute changes. No prior EKGs to compare with. Complex Multi-Symp Course/Dx Course Of Treatment: Patient is a 83 y/o F presenting to ED with complaints fever, chills, fatigue, SOB, productive cough for yellow-green sputum. Sx onset last night. Daughter states fever of around 101 F this morning. She went to to be evaluated, was subsequently sent to ED for further evaluation. Patient was walked at , her o2 sat dropped from 94 to 86. CXR taken there showed left upper lobe PNA. Influenza swab was negative. She notes that she had been diagnosed with a URI/bronchitis on 11/27/18, was placed on Augmentin for ten days , finished 12/07/18. Hx of bronchitis. PSHx of tonsillectomy, hysterectomy, double knee replacement, Yeny-Pitts tear repair. FMHx of grandmother with asthma. No PMHx of asthma, patient has Hx of COPD. Patient stopped smoking 50 years ago. No Hx of VA. On physical exam, rhonchi and wheezes at left lung base , can speak in full sentences, SOB at rest, tachypneic. EKG showed sinus rhythm with rate of 92 BPM, nml AVIVCT, nml axis, nml QTc. No ectopy, non- specific ST. No acute changes. No prior EKGs to compare with. During ED course , Pt's intial blood draw, and institution of IV fluids and antibiotics delayed due to bed availabilty. Pt with only on SIRS criterion upon triage. Pt in no respiratory distress in ED, and afebrile. Patient received fluids 30cc/kg per sepsis protocol, ceftriaxone sodium 1 gm in sodium chlorid 50 mls @ 100 mls/hr IVPB ED, Azithromycin 500 mg in sodium chloride 250 mls @ 250 mls/hr IVPD ED. wbc count 28.2. Patient's case was discussed with Dr. Galvez at 2000, Dr. Glavez accepts for admission. - Diagnoses Differential Diagnoses/HQI/PQRI: Sepsis, Other - pneumonia, COPD Provider Diagnoses: Left upper lobe pneumonia, Sepsis - Physician Notifications Discussed Care Of Patient With: Swathi Galvez Time Discussed With Above Provider: 20:01 Instructed by Provider To: Other - Patient's case was discussed with Dr. Galvez at 2000, Dr. Galvez accepts for admission. - Critical Care Time Critical Care Time: 30-74 min - 30 mins, sepsis due to pneumonia Discharge - Sign-Out/Discharge Documenting (check all that apply): Patient Departure - ADMIT All imaging exams completed and their final reports reviewed: Yes - Discharge Plan Condition: Stable Disposition: ADMITTED TO [facility] - Billing Disposition and Condition Condition: STABLE Disposition: Admitted to [facility] - Attestation Statements Document Initiated by Scribe: Yes Documenting Scribe: AICHA SIMEON Provider For Whom Scribe is Documenting (Include Credential): MARIA LUZ JOSEPH MD Scribe Attestation: AICHA Villegas , scribed for MARIA LUZ JOSEPH MD on 12/14/18 at 2113. Scribe Documentation Reviewed: Yes Provider Attestation: The documentation as recorded by the scribAICHA lundy accurately reflects the service I personally performed and the decisions made by me, MARIA LUZ JOSEPH MD Status of Scribe Document: Viewed
[2018-12-13] MEDS ORDERED: Acetaminophen TAB* 325 MG PO PRN (22:36)
[2018-12-13] MEDS ORDERED: Albuterol 2.5 MG/3 ML NEB.SOL* (0.083%) INH PRN (22:36)
[2018-12-13] MEDS ORDERED: cefTRIAXone(*) 1 GM in NS 0.9% 50 ML* 50 ML IVPB SCH (22:37)
[2018-12-13] MEDS ORDERED: NS 0.9% 1000 ML* 1,000 ML IV SCH (22:45)
[2018-12-14 00:44] LABS: Urine Appearance Clear; Urine Bilirubin Negative (Negative); Urine Blood Negative (Negative); Urine Color Yellow; Urine Glucose Negative (Negative); Urine Ketones Negative (Negative); Urine Nitrite Negative (Negative); Urine Protein Negative (Negative); Urine Specific Gravity 1.003 (1.010-1.030); Urine Urobilinogen Negative (Negative)
--- NOTE | 2018-12-14 00:45 | HP ---
C: Samantha Morfin [place] * HISTORY AND PHYSICAL: DATE OF ADMISSION: 12/13/18 PRIMARY CARE PROVIDER: Samantha Morfin [place] ATTENDING PHYSICIAN WHILE IN THE HOSPITAL: Dr. Swathi Galvez * (report dictated by Felix Dasilva NP) CHIEF COMPLAINT: 1. Cough. 2. Fever. 3. Chills. 4. Fatigue. HISTORY OF PRESENT ILLNESS: Mrs. Simmons is a 83-year-old female patient that is presenting into our services today from urgent care stating that 2 weeks ago she was having respiratory symptoms, cold symptoms. She was evaluated by her primary. Ultimately, it was felt that she may have a bacterial bronchitis, was put on Augmentin. She finished that on the . She felt well for couple days but then the last 2 to 3 days, she has had progressive worsening fatigue, cough, feeling more short of breath, particularly over the last 24 hours. She denied any orthopnea or any nocturnal dyspnea, but she did state that she has been coughing, short of breath with minimal exertion. She has just been feeling run down. She has been kind of aching all over. She just has not been feeling well. She went to urgent care because she knew she was sick recently. She thought may be that she was [place] something again. There, it was noted that she had an elevated white count. It was noted that she had pneumonia on x-ray. She denied any chest pain. She denies any nausea, vomiting , or diarrhea. She just says that she has generally been feeling down, having a worsening cough and increasing shortness of breath that just has not been getting any better, particularly even if she tries her nebulizers. PAST MEDICAL HISTORY: Significant for: 1. Hyperlipidemia. 2. COPD. 3. Migraines. 4. Hypertension. PAST SURGICAL HISTORY: 1. She has had bilateral total knee replacement. 2. Laparoscopic cholecystectomy. 3. Tonsillectomy. 4. Hysterectomy. 5. She has had esophageal repair from complications to an upper endoscopy. MEDICATIONS: Home meds include: 1. Super B-Complex 1 tablet p.o. daily. 2. Verapamil 180 mg p.o. b.i.d. 3. Topamax 100 mg p.o. daily. 4. Ocuvite 1 capsule p.o. daily. 5. Cozaar 25 mg daily. 6. Advair 1 puff inhaled daily. 7. Vitamin D 3000 units p.o. daily. 8. Lipitor 20 mg daily. 9. Aspirin 81 mg daily. 10. Rizatriptan 10 mg every 4 hours as needed. ALLERGIES: Allergies to medications include BETA-BLOCKERS. FAMILY HISTORY: Her mother had TIA. Father had an AL. SOCIAL HISTORY: She is a former smoker. She does not drink alcohol. She lives alone. Surrogate decision maker is her daughter. REVIEW OF SYSTEMS: There is a documented fever. She denied having any significant weight change. There is no double vision. There was no ear discharge. There was rhinorrhea last week but none now. She denied having any ear discharge. She denied having any sore throat. No thyroid enlargement. Denies having any chest pain. There is dyspnea on exertion. There is no orthopnea. No nocturnal dyspnea. There was no abdominal pain. No nausea, no vomiting. There is no dysuria, no frequency. No seizure. No loss of consciousness. No pruritus, and no skin ulcerations. Review of 14 systems completed, all others negative. PHYSICAL EXAMINATION GENERAL: At this time, Ms. Simmons is an 83-year-old female patient. She is sitting in the ED stretcher. She does not appear to be in any acute distress. She appears to be well-nourished and well-developed. VITAL SIGNS: Blood pressure 111/75, pulse 92, her respirations were documented at 47 and 37 twice, but she is actually at rest breathing between 24 and 26 breaths per minute , O2 sat 95%, temperature 98.7. HEENT: Head: Atraumatic and normocephalic. Eyes: EOMs are intact. Sclerae anicteric, not pale. Throat: Oral mucosa appears to be moist. No oropharyngeal erythema. NECK: Supple. LUNGS: She had crackles in the left base. She had equal diaphragmatic expansion. I did not appreciate any wheeze. HEART: Sounds S1, S2, regular rate and rhythm. There were no murmurs, rubs, or gallops. ABDOMEN: Soft, flat, nontender. Bowel sounds were present. EXTREMITIES: Pulses were 2+ throughout. She had no peripheral edema. She is moving all 4 extremities with 5/5 strength. NEUROLOGIC: The patient is awake. She is alert. She is oriented x3. Speech is clear. Tongue midline. Management Associate equal. She had no gross focal deficits. SKIN: Grossly intact. DIAGNOSTIC STUDIES/LAB DATA: WBC of 28.2, RBC of 4.85, hemoglobin of 13.6, hematocrit of 39, platelet count 392. INR 1.33, PTT of 35.6. Sodium 131, potassium 3.7, chloride of 98, bicarb 25, BUN 12, creatinine of 0.78, glucose of 134, lactate 1.2, calcium 9.3. Total bili 1.3, AST 17, ALT 22, alk phos 76. CK 71, troponin was 0.01. CRP of 194. BNP is 87. Albumin 3.7. She had chest x-ray to continue care which showed left lower lobe infiltrate. No previous for comparison. She did have an EKG obtained today, showed a normal sinus rhythm at rate of 92, no ST elevations or T wave inversions are noted. Old medical records were reviewed. ASSESSMENT AND PLAN: Mrs. Simmons is an 83-year-old female patient coming into the ED today with complaints of cough, chills, not feeling well, fatigue, on evaluation found to be septic secondary to pneumonia. She will be admitted under inpatient status for: 1. Sepsis secondary to pneumonia. Again, at this point, she will receive 30 cc /kg bolus. We will get blood cultures. I will get legionella antigen and strep pneumoniae antigen. In addition to this, I will check an ABG. I will also check serial lactates. We will continue with DuoNebs and aggressive pulmonary toileting and we will continue to follow. 2. Chronic obstructive pulmonary disease. She is not wheezing on exam fortunately, so I think I am going to do nebs and inhaled steroids. We may need to consider adding systemic steroids if she does start wheezing, but at this point, I held off and we will continue with her again Dulera nebs and pulmonary toileting. 3. History of migraines. Continue with her Topamax. I held her verapamil. 4. Hypertension. I am holding her blood pressure meds in the setting of acute illness. 5. Hyperlipidemia. Continue statin therapy. 6. DVT prophylaxis: She is high risk. She will be placed on heparin subcu. 7. Fluids, electrolytes, and nutrition: She can have a regular diet. 8. Code status: She wishes to be a full code. TIME SPENT: Time spent on the admission was 60 minutes, greater than half of the time was spent [id number] with the patient obtaining my history and physical, other half of the time was spent going over the plan of care with the patient and implementing plan of care. I did discuss the plan of care with my attending, Dr. Galvez; she is in agreement. FELIX DASILVA, STORY EDITOR [id number]/CPS #: [id number] ELLIS
[2018-12-14 00:59] LABS: Influenza A Molecular NEGATIVE (Negative); Influenza B Molecular NEGATIVE (Negative)
[2018-12-14] MEDS: Albuterol/Ipratropium NEB.SOL* Albuterol 2.5 MG/Ipratropium 0.5 MG 3 ML INH SCH ×3 (01:47→05:58)
[2018-12-14] MEDS: Heparin VIAL(*) 5000 UNITS/ML VIAL (FIVE THOUSAND) SUBCUT SCH ×3 (05:47→21:09)
[2018-12-14] MEDS: Mometasone/Formoter 200/5 MDI INH SCH ×3 (06:00→20:31)
[2018-12-14 06:25] LABS: Hematocrit 34 % (35-47); Hemoglobin 11.1 g/dl (12.0-16.0); Mean Corpuscular HGB Conc 33 g/dl (31-36); Mean Corpuscular Hemoglobin 28 pg (27-31); Mean Corpuscular Volume 84 fL (80-97); Platelet Count 306 10^3/ul (150-450); Red Blood Count 4.03 10^6/ul (4.00-5.40); Red Cell Distribution Width 14 % (10.5-15); White Blood Count 22.5 10^3/ul (3.5-10.8)
[2018-12-14 06:27] LABS: ABS Basophils 0.1 10^3/ul (0-0.2); ABS Eosinophils 0.2 10^3/ul (0-0.6); ABS Lymphocytes 1.8 10^3/ul (1.0-4.8); ABS Monocytes 2.3 10^3/ul (0-0.8); ABS Neutrophils 18.1 10^3/ul (1.5-7.7); ABS Nucleated RBC 0 10^3/ul; Eosinophil % 0.9 %; Nucleated Red Blood Cells % 0.1
[2018-12-14 06:32] LABS: INR 1.4 (0.77-1.02)
[2018-12-14 06:44] LABS: BUN/Creatinine Ratio 18.9 (8-20); Calcium 8.1 mg/dL (8.6-10.3); EGFR African American 133.6 (>60); EGFR Non-African American 110.4 (>60); Potassium 3.6 mmol/L (3.5-5.0)
[2018-12-14] MEDS: Atorvastatin* 20 MG TAB PO SCH (10:03)
[2018-12-14] MEDS: Aspirin 81 mg CHEW TAB* 81 MG TAB.CHEW PO SCH (10:03)
[2018-12-14] MEDS: Topiramate TAB(*) 100 MG PO SCH (10:03)
--- NOTE | 2018-12-14 15:11 | PN ---
Subjective Date of Service: 12/14/18 Interval History: Patient seen and examined. States she is feeling better, has productive cough now, remains on O2, denies fever or chills. No acute SOB, no chest pain. Objective Active Medications: Acetaminophen (Tylenol Tab*) 650 mg PO Q4H PRN PRN Reason: FEVER/PAIN Albuterol (Ventolin 2.5 Mg/3 Ml Neb.Susana*) 2.5 mg INH Q2H PRN PRN Reason: SOB/WHEEZING Aspirin (Aspirin 81 Mg Chew Tab*) 81 mg PO DAILY [facility] Last Admin: 12/14/18 10:03 Dose: 81 mg Atorvastatin Calcium (Lipitor*) 20 mg PO DAILY [facility] Last Admin: 12/14/18 10:03 Dose: 20 mg Heparin Sodium (Porcine) (Heparin Vial(*)) 5,000 units SUBCUT Q8HR [facility] Last Admin: 12/14/18 05:47 Dose: 5,000 units Ceftriaxone Sodium 1 gm/ (Sodium Chloride) 50 mls @ 200 mls/hr IVPB 2100 [facility] Mometasone Furoate/Formoterol Fumar (Dulera 200/5 Mdi*) 2 puff INH BID [facility] Last Admin: 12/14/18 09:21 Dose: Not Given Topiramate (Topamax(*)) 100 mg PO DAILY [facility] Last Admin: 12/14/18 10:03 Dose: 100 mg Oxygen Devices in Use Now: Nasal Cannula Appearance: alert, NAD Eyes: No Scleral Icterus, PERRLA Ears/Nose/Mouth/Throat: NL Teeth, Lips, Gums, Mucous Membranes Moist Neck: NL Appearance and Movements; NL JVP, Trachea Midline Respiratory: Symmetrical Chest Expansion and Respiratory Effort, - - bilateral expiratory wheeze Cardiovascular: NL Sounds; No Murmurs; No JVD, RRR, No Edema Abdominal: NL Sounds; No Tenderness; No Distention Extremities: No Edema, No Clubbing, Cyanosis Skin: No Rash or Ulcers Neurological: Alert and Oriented x 3, NL Sensation, NL Gait Nutrition: Taking PO's Result Diagrams: 12/14/18 06:16 12/14/18 06:16 Additional Lab and Data: Lab Results 12/13/18 12/13/18 12/13/18 Range/Units 19:15 19:15 19:15 WBC 28.2 H (3.5-10.8) 10^3/ul RBC 4.85 (4.00-5.40) 10^6/ul Hgb 13.6 (12.0-16.0) g/dl Hct 41 (35-47) % MCV 85 (80-97) fL MCH 28 (27-31) pg MCHC 33 (31-36) g/dl RDW 13 (10.5-15) % Plt Count 392 (150-450) 10^3/ul MPV 7.2 L (7.4-10.4) fL Neut % (Auto) 85.8 % Lymph % (Auto) 5.4 % Morris % (Auto) 8.5 % Eos % (Auto) 0.1 % Baso % (Auto) 0.2 % Absolute Neuts (auto) 24.2 H (1.5-7.7) 10^3/ul Absolute Lymphs (auto) 1.5 (1.0-4.8) 10^3/ul Absolute Monos (auto) 2.4 H (0-0.8) 10^3/ul Absolute Eos (auto) 0 (0-0.6) 10^3/ul Absolute Basos (auto) 0 (0-0.2) 10^3/ul Absolute Nucleated RBC 0 10^3/ul Nucleated RBC % 0 ESR 88 H (0-40) mm/Hr INR (Anticoag Therapy) 1.33 H (0.77-1.02) APTT 35.6 (26.0-36.3) seconds Sodium 131 L (135-145) mmol/L Potassium 3.7 (3.5-5.0) mmol/L Chloride 98 L (101-111) mmol/L Carbon Dioxide 25 (22-32) mmol/L Anion Gap 8 (2-11) mmol/L BUN 12 (6-24) mg/dL Creatinine 0.78 (0.51-0.95) mg/dL Est GFR ( Amer) 85.6 (>60) Est GFR (Non-Af Amer) 70.7 (>60) BUN/Creatinine Ratio 15.4 (8-20) Glucose 134 H (70-100) mg/dL Lactic Acid (0.5-2.0) mmol/L Calcium 9.3 (8.6-10.3) mg/dL Total Bilirubin 1.30 H (0.2-1.0) mg/dL AST 17 (13-39) U/L ALT 22 (7-52) U/L Alkaline Phosphatase 76 (34-104) U/L Total Creatine Kinase 71 (10-223) U/L Troponin I 0.01 (<0.04) ng/mL C-Reactive Protein 194.30 H (<8.01) mg/L B-Natriuretic Peptide (<=100) pg/mL Total Protein 7.7 (6.4-8.9) g/dL Albumin 3.7 (3.2-5.2) g/dL Globulin 4.0 (2-4) g/dL Albumin/Globulin Ratio 0.9 L (1-3) 12/13/18 12/13/18 Range/Units 19:15 19:15 WBC (3.5-10.8) 10^3/ul RBC (4.00-5.40) 10^6/ul Hgb (12.0-16.0) g/dl Hct (35-47) % MCV (80-97) fL MCH (27-31) pg MCHC (31-36) g/dl RDW (10.5-15) % Plt Count (150-450) 10^3/ul MPV (7.4-10.4) fL Neut % (Auto) % Lymph % (Auto) % Morris % (Auto) % Eos % (Auto) % Baso % (Auto) % Absolute Neuts (auto) (1.5-7.7) 10^3/ul Absolute Lymphs (auto) (1.0-4.8) 10^3/ul Absolute Monos (auto) (0-0.8) 10^3/ul Absolute Eos (auto) (0-0.6) 10^3/ul Absolute Basos (auto) (0-0.2) 10^3/ul Absolute Nucleated RBC 10^3/ul Nucleated RBC % ESR (0-40) mm/Hr INR (Anticoag Therapy) (0.77-1.02) APTT (26.0-36.3) seconds Sodium (135-145) mmol/L Potassium (3.5-5.0) mmol/L Chloride (101-111) mmol/L Carbon Dioxide (22-32) mmol/L Anion Gap (2-11) mmol/L BUN (6-24) mg/dL Creatinine (0.51-0.95) mg/dL Est GFR ( Amer) (>60) Est GFR (Non-Af Amer) (>60) BUN/Creatinine Ratio (8-20) Glucose (70-100) mg/dL Lactic Acid 1.2 (0.5-2.0) mmol/L Calcium (8.6-10.3) mg/dL Total Bilirubin (0.2-1.0) mg/dL AST (13-39) U/L ALT (7-52) U/L Alkaline Phosphatase (34-104) U/L Total Creatine Kinase (10-223) U/L Troponin I (<0.04) ng/mL C-Reactive Protein (<8.01) mg/L B-Natriuretic Peptide 87 (<=100) pg/mL Total Protein (6.4-8.9) g/dL Albumin (3.2-5.2) g/dL Globulin (2-4) g/dL Albumin/Globulin Ratio (1-3) Microbiology and Other Data: Microbiology 12/14/18 00:34 Legionella Urinary Antigen - Final Urine Negative Legionella Antigen Streptococcus pneumoniae Ag Screen - Final Negative S. pneumo Antigen 12/14/18 00:30 Influenza Types A,B Antigen - Final Nasopharyngeal Specimen received for Influenza A/B Molecular testing Assess/Plan/Problems-Billing Assessment: This is an 83 yo female that presents after being treated for bronchitis as an outpatient, now with progressive SOB, hypoxia and sepsis 2/2 CAP, failed outpatient treatment. - Patient Problems (1) CAP (community acquired pneumonia) Code(s): J18.9 - PNEUMONIA, UNSPECIFIED ORGANISM SNOMED Code(s): 058479939 Comment: - Completed PO antibiotics as an outpatient, however, CXR from urgent care reveals PNA - Current leukocytosis, 28.5 at admission, slight improvememt at 22 today - continue ceftriaxone, inhaler, nebs and pulmonary toilet, add mucinex - Follow cultures - obtain sputum culture - Wean O2 as tolerated (2) Sepsis Comment: - s/p 30ml/kg bolus and maintenance IVF - Afebrile, BP stable, no tachycardia - Resolved (3) Hypertension Code(s): I10 - ESSENTIAL (PRIMARY) HYPERTENSION SNOMED Code(s): 95989321 Comment: - Was hypotensive at admission - Hold BP meds (4) DVT prophylaxis Code(s): QUG3032 - SNOMED Code(s): 705437657 Comment: - Heparin SQ (5) Full code status Code(s): Z78.9 - OTHER SPECIFIED HEALTH STATUS SNOMED Code(s): 469805694 Status and Disposition: inpatient, dispo likely home when medically stable.
[2018-12-14] MEDS: guaiFENesin ER TAB 600 MG PO SCH (21:09)
[2018-12-14] MEDS: cefTRIAXone(*) 1 GM in NS 0.9% 50 ML* 50 ML IVPB SCH (21:10)
[2018-12-15] MEDS: Heparin VIAL(*) 5000 UNITS/ML VIAL (FIVE THOUSAND) SUBCUT SCH ×3 (06:47→22:09)
[2018-12-15] MEDS: Mometasone/Formoter 200/5 MDI INH SCH ×2 (08:14→19:57)
[2018-12-15] MEDS: Topiramate TAB(*) 100 MG PO SCH (08:46)
[2018-12-15] MEDS: guaiFENesin ER TAB 600 MG PO SCH ×2 (08:46→22:09)
[2018-12-15] MEDS: Aspirin 81 mg CHEW TAB* 81 MG TAB.CHEW PO SCH (08:47)
[2018-12-15] MEDS: Atorvastatin* 20 MG TAB PO SCH (08:47)
--- NOTE | 2018-12-15 15:33 | PN ---
Subjective Date of Service: 12/15/18 Interval History: Patient seen and examined. OOB to chair, patient states she feels winded with visibly increased WOB off O2. Patient states she is better but still feels like her breathing is labored. Denies fever or chills. Objective Active Medications: Acetaminophen (Tylenol Tab*) 650 mg PO Q4H PRN PRN Reason: FEVER/PAIN Albuterol (Ventolin 2.5 Mg/3 Ml Neb.Susana*) 2.5 mg INH Q2H PRN PRN Reason: SOB/WHEEZING Aspirin (Aspirin 81 Mg Chew Tab*) 81 mg PO DAILY [facility] Last Admin: 12/15/18 08:47 Dose: 81 mg Atorvastatin Calcium (Lipitor*) 20 mg PO DAILY [facility] Last Admin: 12/15/18 08:47 Dose: 20 mg Guaifenesin (Mucinex*) 600 mg PO BID [facility] Last Admin: 12/15/18 08:46 Dose: 600 mg Heparin Sodium (Porcine) (Heparin Vial(*)) 5,000 units SUBCUT Q8HR [facility] Last Admin: 12/15/18 13:53 Dose: 5,000 units Ceftriaxone Sodium 1 gm/ (Sodium Chloride) 50 mls @ 200 mls/hr IVPB 2100 [facility] Last Admin: 12/14/18 21:10 Dose: 200 mls/hr Mometasone Furoate/Formoterol Fumar (Dulera 200/5 Mdi*) 2 puff INH BID [facility] Last Admin: 12/15/18 08:14 Dose: Not Given Topiramate (Topamax(*)) 100 mg PO DAILY [facility] Last Admin: 12/15/18 08:46 Dose: 100 mg Vital Signs - 8 hr 12/15/18 12/15/18 09:28 11:58 Temperature 97.6 F Pulse Rate 73 Respiratory 18 18 Rate Blood Pressure 142/66 (mmHg) O2 Sat by Pulse 96 97 Oximetry Oxygen Devices in Use Now: Nasal Cannula Appearance: alert, NAD, Eyes: No Scleral Icterus, PERRLA Ears/Nose/Mouth/Throat: NL Teeth, Lips, Gums, Mucous Membranes Moist Neck: NL Appearance and Movements; NL JVP, Trachea Midline Respiratory: - - incr WOB with accessory muscle use, course rhonchi throughout Cardiovascular: NL Sounds; No Murmurs; No JVD, RRR, No Edema Abdominal: NL Sounds; No Tenderness; No Distention Extremities: No Edema, No Clubbing, Cyanosis Skin: No Rash or Ulcers Neurological: Alert and Oriented x 3, NL Sensation, NL Gait Nutrition: Taking PO's Result Diagrams: 12/14/18 06:16 12/14/18 06:16 Additional Lab and Data: Lab Results 12/13/18 12/13/18 12/13/18 Range/Units 19:15 19:15 19:15 WBC 28.2 H (3.5-10.8) 10^3/ul RBC 4.85 (4.00-5.40) 10^6/ul Hgb 13.6 (12.0-16.0) g/dl Hct 41 (35-47) % MCV 85 (80-97) fL MCH 28 (27-31) pg MCHC 33 (31-36) g/dl RDW 13 (10.5-15) % Plt Count 392 (150-450) 10^3/ul MPV 7.2 L (7.4-10.4) fL Neut % (Auto) 85.8 % Lymph % (Auto) 5.4 % Parmer % (Auto) 8.5 % Eos % (Auto) 0.1 % Baso % (Auto) 0.2 % Absolute Neuts (auto) 24.2 H (1.5-7.7) 10^3/ul Absolute Lymphs (auto) 1.5 (1.0-4.8) 10^3/ul Absolute Monos (auto) 2.4 H (0-0.8) 10^3/ul Absolute Eos (auto) 0 (0-0.6) 10^3/ul Absolute Basos (auto) 0 (0-0.2) 10^3/ul Absolute Nucleated RBC 0 10^3/ul Nucleated RBC % 0 ESR 88 H (0-40) mm/Hr INR (Anticoag Therapy) 1.33 H (0.77-1.02) APTT 35.6 (26.0-36.3) seconds Sodium 131 L (135-145) mmol/L Potassium 3.7 (3.5-5.0) mmol/L Chloride 98 L (101-111) mmol/L Carbon Dioxide 25 (22-32) mmol/L Anion Gap 8 (2-11) mmol/L BUN 12 (6-24) mg/dL Creatinine 0.78 (0.51-0.95) mg/dL Est GFR ( Amer) 85.6 (>60) Est GFR (Non-Af Amer) 70.7 (>60) BUN/Creatinine Ratio 15.4 (8-20) Glucose 134 H (70-100) mg/dL Lactic Acid (0.5-2.0) mmol/L Calcium 9.3 (8.6-10.3) mg/dL Total Bilirubin 1.30 H (0.2-1.0) mg/dL AST 17 (13-39) U/L ALT 22 (7-52) U/L Alkaline Phosphatase 76 (34-104) U/L Total Creatine Kinase 71 (10-223) U/L Troponin I 0.01 (<0.04) ng/mL C-Reactive Protein 194.30 H (<8.01) mg/L B-Natriuretic Peptide (<=100) pg/mL Total Protein 7.7 (6.4-8.9) g/dL Albumin 3.7 (3.2-5.2) g/dL Globulin 4.0 (2-4) g/dL Albumin/Globulin Ratio 0.9 L (1-3) 12/13/18 12/13/18 Range/Units 19:15 19:15 WBC (3.5-10.8) 10^3/ul RBC (4.00-5.40) 10^6/ul Hgb (12.0-16.0) g/dl Hct (35-47) % MCV (80-97) fL MCH (27-31) pg MCHC (31-36) g/dl RDW (10.5-15) % Plt Count (150-450) 10^3/ul MPV (7.4-10.4) fL Neut % (Auto) % Lymph % (Auto) % Parmer % (Auto) % Eos % (Auto) % Baso % (Auto) % Absolute Neuts (auto) (1.5-7.7) 10^3/ul Absolute Lymphs (auto) (1.0-4.8) 10^3/ul Absolute Monos (auto) (0-0.8) 10^3/ul Absolute Eos (auto) (0-0.6) 10^3/ul Absolute Basos (auto) (0-0.2) 10^3/ul Absolute Nucleated RBC 10^3/ul Nucleated RBC % ESR (0-40) mm/Hr INR (Anticoag Therapy) (0.77-1.02) APTT (26.0-36.3) seconds Sodium (135-145) mmol/L Potassium (3.5-5.0) mmol/L Chloride (101-111) mmol/L Carbon Dioxide (22-32) mmol/L Anion Gap (2-11) mmol/L BUN (6-24) mg/dL Creatinine (0.51-0.95) mg/dL Est GFR ( Amer) (>60) Est GFR (Non-Af Amer) (>60) BUN/Creatinine Ratio (8-20) Glucose (70-100) mg/dL Lactic Acid 1.2 (0.5-2.0) mmol/L Calcium (8.6-10.3) mg/dL Total Bilirubin (0.2-1.0) mg/dL AST (13-39) U/L ALT (7-52) U/L Alkaline Phosphatase (34-104) U/L Total Creatine Kinase (10-223) U/L Troponin I (<0.04) ng/mL C-Reactive Protein (<8.01) mg/L B-Natriuretic Peptide 87 (<=100) pg/mL Total Protein (6.4-8.9) g/dL Albumin (3.2-5.2) g/dL Globulin (2-4) g/dL Albumin/Globulin Ratio (1-3) Microbiology and Other Data: Microbiology 12/14/18 00:34 Legionella Urinary Antigen - Final Urine Negative Legionella Antigen Streptococcus pneumoniae Ag Screen - Final Negative S. pneumo Antigen 12/14/18 00:30 Influenza Types A,B Antigen - Final Nasopharyngeal Specimen received for Influenza A/B Molecular testing Assess/Plan/Problems-Billing Assessment: This is an 83 yo female that presents after being treated for bronchitis as an outpatient, now with progressive SOB, hypoxia and sepsis 2/2 CAP, failed outpatient treatment. - Patient Problems (1) CAP (community acquired pneumonia) Code(s): J18.9 - PNEUMONIA, UNSPECIFIED ORGANISM SNOMED Code(s): 507129755 Comment: - Completed PO antibiotics as an outpatient, however, CXR from urgent care reveals PNA - Leukocytosis, 28.5 at admission, slight improvememt at 22 yesterday, no fever , recheck CBC in AM - Continue ceftriaxone, inhaler, nebs and pulmonary toilet, with mucinex, seems to be expectorating better - Cultures NTD - Wean O2 as tolerated, obtain walking RA sats (2) Sepsis Comment: - s/p 30ml/kg bolus and maintenance IVF - Afebrile, BP stable, no tachycardia - Resolved (3) Hypertension Code(s): I10 - ESSENTIAL (PRIMARY) HYPERTENSION SNOMED Code(s): 37348904 Comment: - Was hypotensive at admission - Consider restarting BP meds in AM if BP remains stable (4) DVT prophylaxis Code(s): LOF1597 - SNOMED Code(s): 095552371 Comment: - Heparin SQ (5) Full code status Code(s): Z78.9 - OTHER SPECIFIED HEALTH STATUS SNOMED Code(s): 769720603 Status and Disposition: inpatient, dispo likely home when medically stable.
[2018-12-15] MEDS: cefTRIAXone(*) 1 GM in NS 0.9% 50 ML* 50 ML IVPB SCH (22:09)
[2018-12-16 04:35] LABS: ABS Basophils 0.1 10^3/ul (0-0.2); ABS Eosinophils 0.5 10^3/ul (0-0.6); ABS Lymphocytes 2.5 10^3/ul (1.0-4.8); ABS Monocytes 1.3 10^3/ul (0-0.8); ABS Neutrophils 7.3 10^3/ul (1.5-7.7); ABS Nucleated RBC 0 10^3/ul; Eosinophil % 4.5 %; Hematocrit 36 % (35-47); Hemoglobin 11.7 g/dl (12.0-16.0); Lymphocyte % 21.1 %; Mean Corpuscular HGB Conc 33 g/dl (31-36); Mean Corpuscular Hemoglobin 28 pg (27-31); Mean Corpuscular Volume 84 fL (80-97); Mean Platelet Volume 7.1 fL (7.4-10.4); Nucleated Red Blood Cells % 0; Platelet Count 385 10^3/ul (150-450); Red Blood Count 4.27 10^6/ul (4.00-5.40); Red Cell Distribution Width 13 % (10.5-15); White Blood Count 11.8 10^3/ul (3.5-10.8)
[2018-12-16 06:10] LABS: ABS Basophils 0.1 10^3/ul (0-0.2); ABS Eosinophils 0.5 10^3/ul (0-0.6); ABS Lymphocytes 2.4 10^3/ul (1.0-4.8); ABS Monocytes 1.4 10^3/ul (0-0.8); ABS Neutrophils 7.4 10^3/ul (1.5-7.7); ABS Nucleated RBC 0 10^3/ul; Eosinophil % 4.3 %; Hematocrit 36 % (35-47); Lymphocyte % 20.5 %; Mean Corpuscular HGB Conc 34 g/dl (31-36); Mean Corpuscular Hemoglobin 28 pg (27-31); Mean Corpuscular Volume 84 fL (80-97); Mean Platelet Volume 7.3 fL (7.4-10.4); Nucleated Red Blood Cells % 0; Platelet Count 380 10^3/ul (150-450); Red Blood Count 4.29 10^6/ul (4.00-5.40); Red Cell Distribution Width 13 % (10.5-15); White Blood Count 11.9 10^3/ul (3.5-10.8)
[2018-12-16] MEDS: Heparin VIAL(*) 5000 UNITS/ML VIAL (FIVE THOUSAND) SUBCUT SCH (06:55)
[2018-12-16] MEDS: Mometasone/Formoter 200/5 MDI INH SCH (07:42)
[2018-12-16] MEDS: guaiFENesin ER TAB 600 MG PO SCH (09:08)
[2018-12-16] MEDS: Atorvastatin* 20 MG TAB PO SCH (09:08)
[2018-12-16] MEDS: Topiramate TAB(*) 100 MG PO SCH (09:08)
[2018-12-16] MEDS: Aspirin 81 mg CHEW TAB* 81 MG TAB.CHEW PO SCH (09:08)
[2018-12-16 09:35] VITALS: BP 139/71
== END 2018-12-16 12:05 | disposition home or self-care (01) | DRG 871 ==
LOC: ED 19:27 → MED 22:30
PROVIDERS: ADMIT Internal Medicine; ATTEND Internal Medicine
DX: A41.9 Sepsis, unspecified organism (principal); J18.9 Pneumonia, unspecified organism; J44.9 Chronic obstructive pulmonary disease, unspecified; G43.909 Migraine, unspecified, not intractable, without status migrainosus; I10 Essential (primary) hypertension; E78.5 Hyperlipidemia, unspecified; R09.02 Hypoxemia; Z96.653 Presence of artificial knee joint, bilateral; Z79.82 Long term (current) use of aspirin; Z79.899 Other long term (current) drug therapy; Z88.8 Allergy status to other drugs, medicaments and biological substances; Z82.49 Family history of ischemic heart disease and other diseases of the circulatory system; Z87.891 Personal history of nicotine dependence
CPT/HCPCS: 36415; 80048; 80053; 81003; 82550; 82803; 83605; 83880; 84484; 85025; 85610; 85652; 85730; 86140; 87040; 87070; 87205; 87899; 93005; 94640; 99284; A9270-GY; J0456; J0696; J1644

== ENCOUNTER 2024-06-27 19:48 | Inpatient (IN) ==
[2024-06-27 21:14] LABS: Hematocrit 41.9 % (35-45); Hemoglobin 13.9 g/dL (11.5-14.3); Mean Corpuscular Hemoglobin 28.1 pg (27-33); Mean Corpuscular Hgb Conc 33.1 g/dL (31-36); Mean Corpuscular Volume 84.7 fL (80-97); Mean Platelet Volume 7.2 fL (7.5-11.2); Platelet Count 336 10^3/uL (150-450); Red Blood Count 4.95 10^6/uL (3.63-4.92); Red Cell Distribution Width 13.6 % (12-17); White Blood Count 13.9 10^3/uL (3.8-11.8)
[2024-06-27 21:40] LABS: ABS Basophils 0.1 10^3/uL (0.0-0.1); ABS Eosinophils 1.1 10^3/uL (0.0-0.5); ABS Lymphocytes 1.6 10^3/uL (1.0-4.8); ABS Monocytes 2.4 10^3/uL (0.0-0.9); ABS Neutrophils 8.6 10^3/uL (1.5-7.6); Eosinophil % 8.3 %; Lymphocyte % 11.6 %
[2024-06-27 21:54] LABS: Albumin 3.9 g/dL (3.2-5.2); Albumin/Globulin Ratio 1.4 (1-3); Calcium 9.9 mg/dL (8.6-10.3); Creatinine, Serum 0.82 mg/dL (0.51-0.95); Globulin 2.7 g/dL (2-4); Potassium 3.6 mmol/L (3.5-5.0); Total Bilirubin 0.9 mg/dL (0.2-1.0); Total Protein 6.6 g/dL (6.4-8.9); eGFR CKD-EPI 68.8 (>60)
[2024-06-27 22:38] LABS: High Sensitivity Troponin 1 Hr 8 pg/mL (<15)
[2024-06-28] MEDS: cefTRIAXone 1 gm/50 mL D5W 1 GM/50 ML BAG IV ONE (03:55)
[2024-06-28] MEDS: Albuterol/Ipratropium NEB.SOL (2.5/0.5 MG) 3 ML NEB.SOLN INH ONE ×2 (03:55→09:55)
[2024-06-28] MEDS: methylPREDNISolone SOD SUCC 125 mg 2 ML VIAL IV ONE (03:55)
[2024-06-28] MEDS: Azithromycin 500 mg/250 ml NS 500 MG/250 ML BAG IVPB ONE (04:12)
[2024-06-28] MEDS ORDERED: Al Hydrox/Mg Hydrox/Simet LIQ 30 ML UDC PO PRN (07:32)
[2024-06-28] MEDS ORDERED: Albuterol/Ipratropium NEB.SOL (2.5/0.5 MG) 3 ML NEB.SOLN INH PRN (08:35)
[2024-06-28] MEDS: Aspirin EC 81 mg TAB.EC (enteric coated) PO SCH (09:27)
[2024-06-28] MEDS: methylPREDNISolone SOD SUCC 40 mg/ml 1 ml VIAL IV SCH (09:28)
[2024-06-28] MEDS: Enoxaparin 40 MG/0.4 ML SYR SUBCUT SCH (09:28)
[2024-06-28] MEDS: Mometasone/Formoter 200/5 MDI INH SCH (09:29)
[2024-06-28] MEDS: Potassium Chlor 20 meq TAB.ER PO ONE (13:53)
[2024-06-28] MEDS: Albuterol/Ipratropium NEB.SOL (2.5/0.5 MG) 3 ML NEB.SOLN INH SCH (13:54)
[2024-06-28] MEDS ORDERED: cefTRIAXone 2 gm/50 mL D5W 2 GM/50 ML BAG IV SCH (21:30)
[2024-06-28] MEDS ORDERED: Azithromycin 500 mg/250 ml NS 500 MG/250 ML BAG IVPB SCH (22:00)
[2024-06-28] MEDS: ZONISAMIDE 100 MG PO SCH (22:56)
[2024-06-28] MEDS: cefTRIAXone 2 gm/50 mL D5W 2 GM/50 ML BAG IV SCH (22:56)
[2024-06-28] MEDS: Azithromycin 500 mg/250 ml NS 500 MG/250 ML BAG IVPB SCH (23:51)
[2024-06-29 08:19] LABS: ABS Lymphocytes 1.3 10^3/uL (1.0-4.8); ABS Neutrophils 8.9 10^3/uL (1.5-7.6); ABS Nucleated RBC 0.01 10^3/ul; Eosinophil % 0.1 %; Hematocrit 36.6 % (35-45); Hemoglobin 12.4 g/dL (11.5-14.3); Lymphocyte % 11.3 %; Mean Corpuscular Hemoglobin 28.6 pg (27-33); Mean Corpuscular Hgb Conc 33.9 g/dL (31-36); Mean Corpuscular Volume 84.2 fL (80-97); Mean Platelet Volume 7.7 fL (7.5-11.2); Nucleated Red Blood Cells % 0.1 %/100WBC (0.0-0.8); Platelet Count 282 10^3/uL (150-450); Red Blood Count 4.34 10^6/uL (3.63-4.92); Red Cell Distribution Width 13.9 % (12-17); White Blood Count 11.2 10^3/uL (3.8-11.8)
[2024-06-29 08:39] LABS: Creatinine, Serum 0.63 mg/dL (0.51-0.95); Potassium 4.6 mmol/L (3.5-5.0); eGFR CKD-EPI 85.3 (>60)
[2024-06-29] MEDS: Polyethylene Glycol 3350 17 GM PACKET PO PRN (09:34)
[2024-06-30] MEDS ORDERED: Albuterol HFA INHALER 8 gm MDI INH PRN (09:36)
[2024-07-01 09:49] VITALS: BP 147/77
== END 2024-07-01 14:00 | disposition home or self-care (01) | DRG 871 ==
LOC: ED 19:48 → EDHOLD 19:48 → MED 06-28 17:08
PROVIDERS: ADMIT Internal Medicine; ATTEND Internal Medicine